=== PATIENT | female | born 1995 ===

== ENCOUNTER 2017-01-29 16:15 | Emergency (ER) | payer OTHER ==
[2017-01-29 16:33] VITALS: PULSE 68; RESP 16; TEMP 98.1; O2SAT 98
[2017-01-29] MEDS ORDERED: Sodium Chloride 0.9% 500 ML IV STA (16:48)
[2017-01-29] MEDS ORDERED: Morphine 4 MG/ML VIAL IV ONE (16:48)
[2017-01-29] MEDS ORDERED: Morphine 4 MG/ML VIAL ONE (16:55)
--- NOTE | 2017-01-29 17:06 | ED PDOC ---
HPI: Chest Pain Time Seen by Provider: 01/29/17 16:27 Chief Complaint (Nursing): Chest Pain Chief Complaint (Provider): chest pain History Per: Patient History/Exam Limitations: no limitations Onset/Duration Of Symptoms: Days (Today) Current Symptoms Are (Timing): Still Present Additional Complaint(s): Chest pain left going to back. No numbness, tingles, weakness, headaches, dyspnea, dizziness. No fever, cough. Not dizzy. No calf pain. No numbness or tingles. 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 No abd pain. No long distance travel or hormone. Takes 2 asa and 1 lisinopril daily. Took them today. Past Medical History Reviewed: Nursing Documentation, Vital Signs Vital Signs: Last Vital Signs Temp 98.1 F 01/29/17 16:30 Pulse 68 01/29/17 16:30 Resp 16 01/29/17 16:30 BP Pulse Ox 98 01/29/17 17:12 - Medical History Other PMH: 1 ventricle - Surgical History Other surgeries: open heart surgery for 1 ventricle - Family History Family History: States: Unknown Family Hx, Diabetes (mother, father), Hypertension (mother) - Living Arrangements Living Arrangements: With Family - Social History Current smoker - smoking cessation education provided: No Alcohol: None Drugs: Denies - Home Medications Home Medications: Ambulatory Orders Medication Instructions Recorded Aspirin [Aspirin Chewable] 2 tab PO DAILY 07/05/15 Enalapril Maleate [Enalapril] 5 mg PO DAILY 07/05/15 Sulfamethoxazole/Trimethoprim 1 tab PO BID #14 tab 01/11/16 [Bactrim DS 800 mg-160 mg] Cyclobenzaprine [Flexeril] 5 mg PO Q8 PRN #15 tab 05/31/16 Naproxen [Naprosyn] 1 tab PO BID PRN #60 tab 05/31/16 - Allergies Allergies/Adverse Reactions: Allergies Allergy/AdvReac Type Severity Reaction Status Date / Time No Known Allergies Allergy Verified 07/05/15 08:47 Review of Systems ROS Statement: Except As Marked, All Systems Reviewed And Found Negative Cardiovascular: Positive for: Chest Pain Physical Exam - Reviewed Nursing Documentation Reviewed: Yes Vital Signs Reviewed: Yes - Physical Exam Appears: Positive for: Non-toxic, No Acute Distress Head Exam: Positive for: ATRAUMATIC, NORMAL INSPECTION, NORMOCEPHALIC Skin: Positive for: Normal Color, Warm, DRY Eye Exam: Positive for: EOMI, Normal appearance, PERRL ENT: Positive for: Normal ENT Inspection Neck: Positive for: Normal, Painless ROM Cardiovascular/Chest: Positive for: Regular Rate, Rhythm, Chest Non Tender. Negative for: Edema Respiratory: Positive for: CNT, Normal Breath Sounds Gastrointestinal/Abdominal: Positive for: Normal Exam, Bowel Sounds, Soft. Negative for: Tenderness Back: Positive for: Normal Inspection. Negative for: L CVA Tenderness, R CVA Tenderness Extremity: Positive for: Normal ROM. Negative for: Tenderness, Pedal Edema Neurologic/Psych: Positive for: Alert, Oriented - Laboratory Results Result Diagrams: 01/29/17 17:00 01/29/17 17:00 Interpretation Of Abn Labs: no acute - ECG ECG: Positive for: Interpreted By Me, Viewed By Me Interpretation Of Abn EKG: inverted t waves anterior and q waves inferior similar to old O2 Sat by Pulse Oximetry: 98 Pulse Ox Interpretation: Normal - Radiology X-Ray: Interpreted by Me, Viewed By Me X-Ray Interpretation: No Acute Disease - Progress ED Course And Treament: 1824: Stable. AAOx3. Pain free. Tolerated PO. Fu with pcp. Will return if any pain, weakness, headaches, dyspnea, dizzy, sweating, or not doing right. Disposition - Clinical Impression Clinical Impression: Chest pain - Patient ED Disposition Is Patient to be Admitted: No Counseled Patient/Family Regarding: Studies Performed, Diagnosis, Need For Followup - Disposition Referrals: [facility] [place] [Outside] - 01/30/17 Disposition: Routine/Home Disposition Time: 18:26 Condition: STABLE Additional Instructions: Come back right away for any pain, weakness, headaches, shortness of breath, dizzy, sweating, or not doing right. See your heart doctor without fail. Instructions: Chest Pain (ED) Forms: [employer] (Korean)
[2017-01-29 17:33] LABS: BASO % 0.7 % (0.0-2.0); EOS # 0.5 K/uL (0.0-0.7); EOS % 8.7 % (0.0-4.0); HEMOGLOBIN 14.9 g/dL (12.0-16.0); LYMPH # 1.4 K/uL (1.0-4.3); LYMPH % 22.9 % (20.0-40.0); MEAN CORPUSCULAR HEMOGLOBIN 29.4 pg (27.0-31.0); MEAN CORPUSCULAR HGB CONC 32.7 g/dL (33.0-37.0); MEAN PLATELET VOLUME 8.9 fl (7.2-11.7); MONO # 0.6 K/uL (0.0-0.8); MONO % 10.7 % (0.0-10.0); NEUT # 3.4 K/uL (1.8-7.0); RBC 5.06 Mil/uL (3.80-5.20)
[2017-01-29 17:46] LABS: ALB/GLOB RATIO 1.2 (1.0-2.1); ALBUMIN 4.5 g/dL (3.5-5.0); ALT/SGPT 37 U/L (9-52); AST/SGOT 25 U/L (14-36); BLOOD UREA NITROGEN 13 mg/dl (7-17); CALCIUM 9.5 mg/dL (8.4-10.2); GFR AFRICAN-AMERICAN > 60; GFR NON-AFRICAN AMERICAN > 60
[2017-01-29 18:00] LABS: INR 1.4 (0.9-1.2); PARTIAL THROMBOPLASTIN TIME 33.1 Seconds (25.6-37.1)
--- NOTE | 2017-01-29 18:20 | RAD ---
HISTORY: dyspnea COMPARISON: Chest x-ray performed 05/31/16 TECHNIQUE: Chest, one view. FINDINGS: Examination limited by habitus. LUNGS: Mild hilar/infrahilar opacities may represent infiltrate or atelectasis. Please note that chest x-ray has limited sensitivity for the detection of pulmonary masses. PLEURA: No significant pleural effusion identified. No definite pneumothorax . CARDIOVASCULAR: Postsurgical changes. Heart size appears within normal limits. OSSEOUS STRUCTURES: No acute osseous abnormality identified. VISUALIZED UPPER ABDOMEN: Unremarkable. OTHER FINDINGS: None. IMPRESSION: Mild hilar/infrahilar opacities may represent infiltrate or atelectasis.
--- NOTE | 2017-01-31 07:43 | CARD ---
APPROVED REPORT EKG Measurement Heart [id number] <Conclusion> Sinus rhythm with sinus arrhythmia with short [place] ST & T wave abnormality, Abnormal ECG
== END 2017-01-29 19:27 | disposition home or self-care (01) ==
LOC: H.ER 16:15
DX: R07.89 Other chest pain (principal)